=== PATIENT | female | born 1955 | race Caucasian/White ===

== ENCOUNTER 2019-09-29 13:49 | Outpatient (CLI) | payer BC, SELFPAY ==
--- NOTE | 2019-09-29 14:01 | XR_ITS ---
WS: [id number] Left elbow, 3 views, 09/29/2019 Clinical Data: ELBOW PAIN, LEFT Comparison: None. Findings: No fractures or dislocations are seen. The radial head is normal. The soft tissues are unremarkable. XR/XR elbow LT min 3V* [id number] Impression: Negative left elbow.
== END 2019-09-29 13:50 | disposition home or self-care (01) ==
LOC: WPI 13:55
PROVIDERS: Family Provider Internal Medicine; PCP Internal Medicine; Referring Provider Internal Medicine; Visit Provider Nurse Practitioner Family
DX: M25.522 Pain in left elbow (principal)
CPT/HCPCS: 73080

== ENCOUNTER 2020-11-22 11:55 | Outpatient (CLI) | payer MEDICARE, SELFPAY ==
--- NOTE | 2020-11-22 12:07 | MM_ITS ---
WS: [id number] DIAGNOSTIC BILATERAL DIGITAL MAMMOGRAM WITH CAD HISTORY: HX OF BREAST CA COMPARISON: 07/07/2019 and 05/02/2018 TECHNIQUE: Bilateral craniocaudad, mediolateral oblique, and mediolateral views are submitted. Comput er aided detection utilized. Breast composition: There are scattered areas of fibroglandular density. Postsurgical changes with vo lume loss in the anterior RIGHT breast in the subareolar location. No new or suspicious masses. No de veloping calcifications. MM/[place] [id number] IMPRESSION: BI-RADS: 2-Benign FOLLOW UP: 1 Year Follow-up
== END 2020-11-22 11:56 | disposition home or self-care (01) ==
PROVIDERS: PCP Nurse Practitioner Family; Visit Provider Nurse Practitioner Family
DX: Z85.3 Personal history of malignant neoplasm of breast (principal)
CPT/HCPCS: 77066

== ENCOUNTER 2022-04-18 08:35 | Outpatient (CLI) | payer MEDICARE, SELFPAY ==
--- NOTE | 2022-04-18 08:50 | MM_ITS ---
WS: [id number] DIAGNOSTIC BILATERAL DIGITAL BREAST TOMOSYNTHESIS MAMMOGRAPHY WITH CAD HISTORY: HX OF BREAST CA COMPARISON: 11/22/2020 and 06/27/2019 TECHNIQUE: Bilateral craniocaudad, mediolateral oblique, and mediolateral views are submitted with to mosynthesis and SM. Computer aided detection utilized. Breast composition: There are scattered areas of fibroglandular density. Postsurgical changes are not ed in the anterior RIGHT breast. There is slight nipple retraction and mild trabecular thickening wit h scar formation. Similar appearance to the prior examinations. No new mass. Benign dystrophic calcif ication adjacent to the surgical site. MM/[place] [id number] IMPRESSION: BI-RADS: 2-Benign FOLLOW UP: 1 Year Follow-up
== END 2022-04-18 08:36 | disposition home or self-care (01) ==
PROVIDERS: PCP Nurse Practitioner Family; Visit Provider Nurse Practitioner Family
DX: Z85.3 Personal history of malignant neoplasm of breast (principal)
CPT/HCPCS: 77062

== ENCOUNTER → 2022-06-19 08:08 | Outpatient (BNVA) | payer MEDICARE, SELFPAY | PROVIDERS: PCP Nurse Practitioner Family; Visit Provider Surgery | DX: Z12.11 Encounter for screening for malignant neoplasm of colon (principal) | CPT/HCPCS: 99024 ==

== ENCOUNTER 2022-08-30 06:31 | Day surgery (SDC) | payer MEDICARE, SELFPAY ==
[2022-08-28 10:17] VITALS: BMI 29.5
--- NOTE | 2022-08-30 06:46 | W.PM.OPSFHP ---
Same Day Surgery H&P Indication for Procedure/HPI DATE OF PROCEDURE: August 30, 2022 CHIEF COMPLAINT/INDICATIONFOR SURGICAL PROCEDURE: Screening colonoscopy PREOP DIAGNOSIS: Screening colonoscopy PLANNED PROCEDURE: Operation Date: 08/30/22 07:45 Proposed Procedures p Colonoscopy 76190,Z12.11(Not Applicable) - Fran Watson MD 06/19/2022 This is a pleasant 66 years old female patient referred to my practice with history of intermittent blood when she wipes.? Otherwise she has been constipated and she denies history of colon polyps or colon cancer.? She did have a previous colonoscopy back in 2017.? She comes today to discuss colonoscopy. 08/30/2022 Patient comes today for screening colonoscopy ROS All systems have been reviewed negative except as for the above or per problem list. Medications/Allergies* Home Medications Medication Instructions Recorded Confirmed Type atorvastatin 40 mg tablet 40 mg PO DAILY 06/19/22 08/28/22 History bupropion HCl 150 mg 24 hr tablet, 150 mg PO QAM 06/19/22 08/28/22 History extended release escitalopram oxalate 10 mg tablet 10 mg PO DAILY 06/19/22 08/28/22 History (Lexapro) lisinopril 20 mg tablet 20 mg PO DAILY 06/19/22 08/28/22 History loratadine 10 mg tablet 10 mg PO DAILY 06/19/22 08/28/22 History omega-3 fatty acids 1,000 mg 2,000 mg PO DAILY 06/19/22 08/28/22 History capsule Allergies/Adverse Reactions Allergy/AdvReac Type Severity Reaction Status Date / Time No Known Allergies Allergy Verified 08/30/22 06:47 Pertinent History/Comorbid Conditions* Social History Smoking and tobacco status: current every day smoker Pertinent Exam Findings alert, oriented x 3, regular rate & rhythm and procedure specific exam findings (Abdominal exam nontender nondistended soft) Recommendations Surgery/Procedure today (Colonoscopy with possible biopsy) Coding Level of Care Code 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
[2022-08-30 06:49] VITALS: BP 136/79; PULSE 96; RESP 18; TEMP 36.1; O2SAT 95
[2022-08-30] MEDS: sodium chloride 0.9% 1,000 ML 30 ML IV (07:00)
--- NOTE | 2022-08-30 07:44 | ANES.PREANE2 ---
Pre-Anesthetic Assessment Height/Weight: Height 1.6 m Weight 75.75 kg Temp Pulse Resp BP Pulse Ox O2 Del Method 97.0 F L 96 18 136/79 95 08/30/22 06:49 08/30/22 06:49 08/30/22 06:49 08/30/22 06:49 08/30/22 06:49 08/30/22 06:49 Preop Diagnosis: Screening colonoscopy Operation Date: 08/30/22 07:45 Proposed Procedures p Colonoscopy 27261,Z12.11(Not Applicable) - Fran Watson MD Familial anesthetic complications: none Was Beta Milena taken within 24 hours: N/A Was Clonidine taken within 24 hours: N/A Last intake: Intake Last Liquid Date 08/29/22 Last Liquid Time 08:00 Last Solid Date 08/28/22 Last Solid Time 18:00 Social Tobacco and No alcohol Exam alert, oriented x 3 and regular rate & rhythm Airway Submandibular: within normal limits Cervical ROM: within normal limits Mallampati: Class II Dentition: false Pulmonary Chronic Obstructive Pulmonary Disease CV/HEM Hypertension Metabolic Morbid Obesity Neuropsych Anxiety Anesthetic Plan ASA status: 3 Anesthesia: MAC Medications/Allergies Home Medications Medication Instructions Recorded Confirmed Last Taken Type atorvastatin 40 mg tablet 40 mg PO DAILY 06/19/22 08/28/22 08/28/22 History bupropion HCl 150 mg 24 hr tablet, 150 mg PO QAM 06/19/22 08/28/22 08/28/22 History extended release escitalopram oxalate 10 mg tablet 10 mg PO DAILY 06/19/22 08/28/22 08/28/22 History (Lexapro) lisinopril 20 mg tablet 20 mg PO DAILY 06/19/22 08/28/22 08/28/22 History loratadine 10 mg tablet 10 mg PO DAILY 06/19/22 08/28/22 08/28/22 History omega-3 fatty acids 1,000 mg 2,000 mg PO DAILY 06/19/22 08/28/22 08/28/22 History capsule Allergies Allergy/AdvReac Type Severity Reaction Status Date / Time No Known Allergies Allergy Verified 08/30/22 06:47 Current Medications Generic Name Dose Route Start Last Admin Trade Name Freq PRN Reason Stop Dose Admin Sodium Chloride 1,000 mls @ 30 mls/hr 08/30/22 06:45 08/30/22 07:00 Sodium Chloride 0.9% IV 30 mls/hr .Q24H KEYON Administration PFSH Anesthesia Social History Smoking and tobacco status: current every day smoker Data Anesthesia Cardiac Studies: No Data to Display
[2022-08-30 08:24] VITALS: BP 135/66; PULSE 73; RESP 16; TEMP 36.1; O2SAT 97
[2022-08-30 08:35] VITALS: BP 124/70; PULSE 76; RESP 18; O2SAT 92
--- NOTE | 2022-08-30 11:58 | ANE.PACU2 ---
Inpatient post-anesthesia follow up: Airway intact: Yes Vital signs: Temperature 97.0 F Pulse Rate 76 Respiratory Rate 18 Blood Pressure 124/70 Pulse Oximetry 92 Oxygen Delivery Me thod Room Air Oxygen Flow Rate 3 Fraction of Inspir ed Oxygen Hydration adequate: Yes Nausea and vomiting: No Pain level: 1 Mental status: Baseline
== END 2022-08-30 08:56 | disposition home or self-care (01) ==
PROVIDERS: PCP Nurse Practitioner Family; Visit Provider Surgery
PROC: 0DJD8ZZ Inspection of Lower Intestinal Tract, Via Natural or Artificial Opening Endoscopic (ICD-10-PCS; CPT 45378; principal; 2022-08-30 07:45)
DX: Z12.11 Encounter for screening for malignant neoplasm of colon (principal); K57.30 Diverticulosis of large intestine without perforation or abscess without bleeding; K63.5 Polyp of colon; J44.9 Chronic obstructive pulmonary disease, unspecified; I10 Essential (primary) hypertension; E66.01 Morbid (severe) obesity due to excess calories; Z68.29 Body mass index [BMI] 29.0-29.9, adult; F17.210 Nicotine dependence, cigarettes, uncomplicated
CPT/HCPCS: 45385; 88305; J2704; J7030

== ENCOUNTER → 2022-09-06 16:45 | Outpatient (BNVA) | payer MEDICARE, SELFPAY | PROVIDERS: PCP Nurse Practitioner Family; Visit Provider Surgery | DX: Z09 Encounter for follow-up examination after completed treatment for conditions other than malignant neoplasm (principal); K63.5 Polyp of colon; K57.31 Diverticulosis of large intestine without perforation or abscess with bleeding | CPT/HCPCS: 99212 ==

== ENCOUNTER 2022-10-25 08:44 | Outpatient (CLI) | payer MEDICARE, SELFPAY ==
--- NOTE | 2022-10-25 | US_ITS ---
DIAGNOSTIC RIGHT DIGITAL TOMOSYNTHESIS MAMMOGRAPHY WITH CAD. RIGHT breast ultrasound, limited HISTORY: RT BREAST LUMP, history of remote RIGHT breast cancer. COMPARISON: 04/18/2022, 11/22/2020, 07/07/2019 Technique: CC, MLO and ML views. Spot compression RIGHT CC and MLO. Breast composition: There are scattered areas of fibroglandular density. Nipple is retracted there is dense soft tissue and skin thickening which is probably related to prior surgery. The soft tissue and nipple retraction probably not significantly changed since 11/22/2021. Ultrasound will be performed. RIGHT breast ultrasound, limited. Ultrasound is directed to the RIGHT breast at 2:00 in the area of the palpable concern. Directed by the patient. There is very minimal superficial skin thickening related to prior treatment. No mass or shadowing or increased vascularity. IMPRESSION: BI-RADS: 2-Benign FOLLOW UP: See Report 1. No imaging abnormalities are identified. Postoperative changes anterior RIGHT breast. Palpable nodule. 2. Return to annual mammography. SRINI
--- NOTE | 2022-10-25 08:59 | MM_ITS ---
WS: [id number] DIAGNOSTIC RIGHT DIGITAL TOMOSYNTHESIS MAMMOGRAPHY WITH CAD. RIGHT breast ultrasound, limited HISTORY: RT BREAST LUMP, history of remote RIGHT breast cancer. COMPARISON: 04/18/2022, 11/22/2020, 07/07/2019 Technique: CC, MLO and ML views. Spot compression RIGHT CC and MLO. Breast composition: There are scattered areas of fibroglandular density. Nipple is retracted there i s dense soft tissue and skin thickening which is probably related to prior surgery. The soft tissue a nd nipple retraction probably not significantly changed since 11/22/2021. Ultrasound will be performed. RIGHT breast ultrasound, limited. Ultrasound is directed to the RIGHT breast at 2:00 in the area of the palpable concern. Directed by the patient. There is very minimal superficial skin thickening related to prior treatment. No mass or shadowing or increased vascularity. MM/[place] [id number] IMPRESSION: BI-RADS: 2-Benign FOLLOW UP: See Report 1. No imaging abnormalities are identified. Postoperative changes anterior RIG HT breast. Palpable nodule. 2. Return to annual mammography.
== END 2022-10-25 08:45 | disposition home or self-care (01) ==
PROVIDERS: PCP Nurse Practitioner Family; Visit Provider Nurse Practitioner Family
DX: N63.12 Unspecified lump in the right breast, upper inner quadrant (principal); Z85.3 Personal history of malignant neoplasm of breast
CPT/HCPCS: 76642; 77061; G0279

== ENCOUNTER 2023-05-09 14:53 | Outpatient (CLI) | payer MEDICARE, SELFPAY ==
--- NOTE | 2023-05-09 15:00 | MM_ITS ---
WS: [id number] BILATERAL 3D TOMOSYNTHESIS DIGITAL DIAGNOSTIC MAMMOGRAPHY WITH CAD CLINICAL INFORMATION: ANNUAL HX BR CA HISTORY: Prior RIGHT lumpectomy COMPARISON: 10/25/2022 TECHNIQUE: Bilateral CC, MLO, and ML views. FINDINGS: Scattered fibroglandular densities bilaterally. Lucent centered calcification RIGHT breast. Prior lum pectomy RIGHT breast. Treatment-related changes RIGHT breast with parenchymal fibrosis, skin thickeni ng, and fat necrosis. No suspicious focal mass, asymmetry, calcifications, or architectural distortion. No evidence of chelsie gnancy. IMPRESSION: MM/[place] [id number] BI-RADS: 2-Benign FOLLOW UP: 1 Year Follow-up Recommend return to annual diagnostic mammography.
== END 2023-05-09 14:54 | disposition home or self-care (01) ==
PROVIDERS: PCP Nurse Practitioner Family; Visit Provider Nurse Practitioner Family
DX: Z85.3 Personal history of malignant neoplasm of breast (principal)
CPT/HCPCS: 77062; G0279

== ENCOUNTER 2024-01-09 11:16 | Emergency (ER) | payer MEDICARE, SELFPAY ==
--- NOTE | 2024-01-09 11:19 | ECG_ITS ---
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 Measurements Intervals [place] Rate: 103 P: 29 IA: 151 QRS: 47 QRSD: 103 T: 78 QT: 348 QTc: 456 Interpretive Statements SINUS TACHYCARDIA WITH OCCASIONAL VENTRICULAR PREMATURE COMPLEXES WITH FREQUENT SUPRAVENTRICULAR PREMATURE COMPLEXES PROBABLE INFERIOR MYOCARDIAL INFARCTION , PROBABLY OLD [35 ms Q WAVE IN II/aVF] No previous ECG available for comparison Electronically Signed On 01-09-2024 15:27:17 CDT by Marcelo Hoffman M.D. [id number]
[2024-01-09 11:26] VITALS: BP 130/62; PULSE 98; TEMP 36.6; O2SAT 92; BMI 30.9
--- NOTE | 2024-01-09 11:33 | CTR_ITS ---
PROCEDURE INFORMATION: Exam: CT Head Without Contrast Exam date and time: 01/09/2024 12:02 PM Age: 68 years old Clinical indication: Syncope and collapse TECHNIQUE: Imaging protocol: Computed tomography of the head without contrast. Radiation optimization: All CT scans at this facility use at least one of these dose optimization techniques: automated exposure control; mA and/or kV adjustment per patient size (includes targeted exams where dose is matched to clinical indication); or iterative reconstruction. COMPARISON: No relevant prior studies available. RADIATION DOSE METRICS: Total DLP (mGy-cm): 1091.4 FINDINGS: Brain: No intracranial hemorrhage. There is global parenchymal volume loss. Periventricular white matter hypoattenuation is nonspecific but most likely due to small vessel disease. No evidence of acute territorial infarct or cerebral edema. No mass effect or midline shift. Nonacute lacunar infarct left basal ganglia. Cerebral ventricles: Prominent ventricles likely secondary to volume loss. Paranasal sinuses: Visualized sinuses are unremarkable. No fluid levels. Mastoid air cells: Visualized mastoid air cells are well aerated. Bones/joints: Unremarkable. No acute fracture. Soft tissues: Unremarkable. CT/CT head wo con* [id number] IMPRESSION: No acute intracranial findings.
[2024-01-09 11:51] LABS: Basophils # 0.1 10^3/uL (0.0-0.1); Basophils % 0.5 %; Eosinophils # 0.5 10^3/uL (0.0-0.8); Eosinophils % 3.9 %; Hematocrit 43.4 % (36-47); Lymphocytes # 4.5 10^3/uL (0.8-4.8); Lymphocytes % 37.7 %; Mean Corpuscular HGB Conc 33.9 g/dL (30-55); Mean Corpuscular Hemoglobin 30.1 pg (27-33); Mean Corpuscular Volume 88.8 fl (85-98); Mean Platelet Volume 11.9 fL (7.4-10.4); Monocytes # 1.5 10^3/uL (0.2-0.9); Monocytes % 12.8 %; Neutrophils # 5.35 10^3/uL (1.8-7.7); Neutrophils % 44.8 %; Nucleated Red Blood Cells % 0 %; Platelet Count 276 10^3/cmm (157-399); Red Blood Count 4.89 10^6/uL (3.85-5.65); Red Cell Distribution Width 13.8 % (12.1-15.1); White Blood Count 11.92 10^3/uL (3.29-11.43)
[2024-01-09 12:11] LABS: Alanine Aminotransferase 21 U/L (0-33); Albumin Level 4.3 g/dL (3.5-5.2); Alkaline Phosphatase 112 U/L (35-105); Anion Gap 16.7 (5-19); Aspartate Amino Transferase 25 U/L (0-32); Blood Urea Nitrogen 32 mg/dL (8-23); Calcium 9.6 mg/dL (8.5-10.5); Carbon Dioxide 24 mmol/L (22-29); Chloride 105 mmol/L (98-107); Creatinine Clr Calc Pharmacy 38.3663; Globulin 3.3 g/dL (1.3-4.6); Glomerular Filtration Rate 37.4 mL/min (90-130); Glucose 91 mg/dL (65-115); Osmolality Calculated 300 mOsm/kg (285-295); Potassium 3.7 mmol/L (3.5-5.1); Sodium 142 mmol/L (136-145); Total Bilirubin 0.3 mg/dL (0.15-1.2); Total Protein 7.6 g/dL (6.6-8.7)
--- NOTE | 2024-01-09 12:16 | W.ED.SYNCOPE ---
HPI - Syncope General: Chief Complaint: Syncope Stated Complaint: syncope Time Seen by Provider: 01/09/24 11:19 Source: patient and EMS Mode of arrival: EMS Limitations: no limitations History of Present Illness: 68-year-old female states she is at work states she stood up felt lightheaded and had a syncopal event. She unsure if she hit her head she woke up immediately she states she is had no chest pain denies any headache she never had a syncopal event before she denies any vomiting. She denies any fevers. Associated symptoms: Deny abdominal pain, chest pain, fever(s), headache(s) or nausea Review of Systems Const: Denies: fever(s), chills, body aches or change in appetite Card: Reports: syncope; Denies: chest pain Resp: Denies: dyspnea GI: Denies: abdominal pain, nausea, vomiting or diarrhea : Denies: dysuria Musc: Denies: neck pain or back pain Skin/Breast: Denies: rash Neuro: Denies: headache(s) PFSH ED PFSH: Social History Smoking and tobacco/nicotine status: current every day tobacco/nicotine user Physical Exam Const: COMMON NORMALS: no acute distress, patient oriented x3 and healthy appearing HENMT: COMMON NORMALS: normocephalic and atraumatic HEAD & SCALP: normocephalic and atraumatic Eye: COMMON NORMALS: Equal, round and reactive pupils present and EOMs intact bilaterally PUPIL: Yes Equal, round and reactive pupils present Neck/C-Spine: COMMON NORMALS: full ROM and supple Chest: COMMONS NORMALS: normal inspection of the chest and normal palpation of entire chest wall Resp: COMMON NORMALS: normal respiratory effort, No retractions, No use of accessory muscles and clear to auscultation bilaterally AUSCULTATION: clear to auscultation bilaterally Cardio: COMMON NORMALS: regular rate, regular rhythm and No murmurs present (Cardio) RATE: regular rate RHYTHM: regular rhythm GI: COMMON NORMALS: Normal to inspection, nondistended, normoactive bowel sounds present, Soft to palpation, non-tender and no masses PALPATION: Yes Soft to palpation Extremity: COMMON NORMALS: normal to inspection and full ROM Neuro: COMMON NORMALS: patient oriented x3, moves all extremities and no focal motor deficits Psych: COMMON NORMALS: mental status grossly normal, Normal thought process present and cooperative THOUGHT PROCESS: Normal thought process present Skin: COMMON NORMALS: no rashes or lesions noted and no wounds GENERAL SKIN EXAM: no rashes or lesions noted Course Vital Signs: Vital signs: Vital Signs Temperature 97.9 F 01/09/24 11:26 Pulse Rate 92 01/09/24 12:30 Blood Pressure 119/56 01/09/24 12:30 Pulse Oximetry 95 01/09/24 12:30 Oxygen Delivery Me thod Room Air 01/09/24 12:30 MDM - Syncope Medical Decision Making Patient presents here with syncopal event is likely a vagal episode she is well-appearing here she is had no complaints here blood works normal some slight dehydration give her some IV fluids she stable for discharge she is follow-up PCP return if worsening. Medical Records I reviewed the patient's medical records. Lab Data I reviewed the patient's lab results. 01/09/24 11:07 01/09/24 11:[address] 01/09/24 11:33 IMPRESSION: No acute intracranial findings. Laboratory Results WBC 11.92 10^3/uL (3.29-11.43) H 01/09/24 11:07 RBC 4.89 10^6/uL (3.85-5.65) 01/09/24 11:07 Hgb 14.70 g/dL (11.27-16.99) 01/09/24 11:07 Hct 43.4 % (36-47) 01/09/24 11:07 MCV 88.8 fl (85-98) 01/09/24 11:07 MCH 30.1 pg (27-33) 01/09/24 11:07 MCHC 33.9 g/dL (30-55) 01/09/24 11:07 RDW 13.8 % (12.1-15.1) 01/09/24 11:07 Plt Count 276 10^3/cmm (157-399) 01/09/24 11:07 MPV 11.9 fL (7.4-10.4) H 01/09/24 11:07 Neut % (Auto) 44.8 % 01/09/24 11:07 Lymph % (Auto) 37.7 % 01/09/24 11:07 [place] % (Auto) 12.8 % 01/09/24 11:07 Eos % (Auto) 3.9 % 01/09/24 11:07 Baso % (Auto) 0.5 % 01/09/24 11:07 Neut # (Auto) 5.35 10^3/uL (1.8-7.7) 01/09/24 11:07 Lymph # (Auto) 4.5 10^3/uL (0.8-4.8) 01/09/24 11:07 [place] # (Auto) 1.5 10^3/uL (0.2-0.9) H 01/09/24 11:07 Eos # (Auto) 0.5 10^3/uL (0.0-0.8) 01/09/24 11:07 Baso # (Auto) 0.1 10^3/uL (0.0-0.1) 01/09/24 11:07 Nucleated RBC % (auto) 0 % 01/09/24 11:07 Nucleated RBCs # 0.0 /100WBC 01/09/24 11:07 Sodium 142 mmol/L (136-145) 01/09/24 11:07 Potassium 3.7 mmol/L (3.5-5.1) 01/09/24 11:07 Chloride 105 mmol/L (98-107) 01/09/24 11:07 Carbon Dioxide 24 mmol/L (22-29) 01/09/24 11:07 Anion Gap 16.7 (5-19) 01/09/24 11:07 BUN 32 mg/dL (8-23) H 01/09/24 11:07 Creatinine 1.4 mg/dL (0.5-0.9) H 01/09/24 11:07 GFR Calculation 37.4 mL/min (90-130) L 01/09/24 11:07 Glucose 91 mg/dL (65-115) 01/09/24 11:07 Calculated Osmolality 300 mOsm/kg (285-295) H 01/09/24 11:07 Calcium 9.6 mg/dL (8.5-10.5) 01/09/24 11:07 Total Bilirubin 0.3 mg/dL (0.15-1.2) 01/09/24 11:07 AST 25 U/L (0-32) 01/09/24 11:07 ALT 21 U/L (0-33) 01/09/24 11:07 Alkaline Phosphatase 112 U/L (35-105) H 01/09/24 11:07 Total Protein 7.6 g/dL (6.6-8.7) 01/09/24 11:07 Albumin 4.3 g/dL (3.5-5.2) 01/09/24 11:07 Globulin 3.3 g/dL (1.3-4.6) 01/09/24 11:07 All radiology interpretation(s) finalized by discharge EKG Data EKG 1: I personally reviewed and interpreted this EKG as follows: EKG interpretation date: 01/09/24 EKG interpretation time: 11:26 Interpretation: sinus tach hr [address] or t wave abnormalities qrs 103 qtc 408 Discharge Plan Discharge Patient Disposition: Home Clinical Impression: Syncope Condition: Stable Prescriptions: No Action atorvastatin 40 mg tablet 40 mg PO DAILY bupropion HCl 150 mg tablet extended release 24 hr 150 mg PO QAM lisinopril 20 mg tablet 20 mg PO DAILY escitalopram oxalate [Lexapro] 10 mg tablet 10 mg PO DAILY loratadine 10 mg tablet 10 mg PO DAILY naproxen 500 mg tablet 500 mg PO BID PRN (Reason: INFLAMMATION OR PAIN) Discharge Orders: Discharge ED (Routine); Ordered 01/09/24 Ordered By: Ayla Shin Referrals: Martine Dale SENIOR PRINCIPAL PROCESS ENGINEER [Primary Care Provider] - Discharge Diet: Advance as tolerated Discharge Activity: Resume usual activity Patient Instructions: Syncope (ED) Coding Level of Care Code 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
[2024-01-09 12:22] LABS: Slide Review Slide Review Perform
[2024-01-09] MEDS: sodium chloride 0.9% 1,000 ML 999 ML IV (12:22)
[2024-01-09 12:30] VITALS: BP 119/56; PULSE 92; O2SAT 95
[2024-01-09 13:02] VITALS: BP 127/67; BP 142/79; PULSE 88; PULSE 98
== END 2024-01-09 13:19 | disposition home or self-care (01) ==
PROVIDERS: Emergency Provider Emergency Medicine; PCP Nurse Practitioner Family
DX: R55 Syncope and collapse (principal); Z72.0 Tobacco use
CPT/HCPCS: 70450; 80053; 85025; 93005; 96360; 99285; J7030

== ENCOUNTER → 2025-01-12 10:17 | Outpatient (BNVA) | payer OTHER, SELFPAY | PROVIDERS: PCP Family Medicine; Visit Provider Family Medicine | DX: I10 Essential (primary) hypertension (principal); E53.8 Deficiency of other specified B group vitamins; R41.3 Other amnesia; Z85.3 Personal history of malignant neoplasm of breast | CPT/HCPCS: 80053; 80061; 81000; 82607; 84443; 85025; 87086 ==